=== PATIENT | male | born 1975 | race Hispanic/Latino ===

== ENCOUNTER 2016-05-20 23:45 | Emergency (ER) | payer SELFPAY ==
[2016-05-20 23:52] VITALS: BP 143/87; PULSE 89; RESP 18; TEMP 98.4; O2SAT 99
[2016-05-21] MEDS ORDERED: Polymyxin/Trimethoprim Ophth Soln OD STA (01:05)
[2016-05-21] MEDS ORDERED: Tobramycin/Dexamethasone OPHT OINT OD STA (01:12)
[2016-05-21] MEDS ORDERED: Dexamethasone/Tobramycin Ophth Susp OD STA (01:15)
== END 2016-05-21 01:23 | disposition home or self-care (01) ==
LOC: H.ER 23:45
DX: H57.8 Other specified disorders of eye and adnexa (principal)

== ENCOUNTER 2016-05-28 00:47 | Emergency (ER) | payer SELFPAY ==
[2016-05-28 01:19] VITALS: RESP 16; O2SAT 98
--- NOTE | 2016-05-28 03:42 | ED PDOC ---
Syncope/Near Syncope/Dizzyness Time Seen by Provider: 05/28/16 03:36 Chief Complaint (Nursing): Dizziness/Lightheaded Chief Complaint (Provider): Dizziness History Per: Patient History/Exam Limitations: no limitations Onset/Duration Of Symptoms: Hrs (5) Current Symptoms Are (Timing): Still Present Activity At Onset Of Symptoms: Sitting Additional Complaint(s): Delfino Saavedra is a 40 y/o male, with a past medical history of Diabetes Mellitus, presenting to the ER on 05/28/2016 with complaints od dizziness x5 hours. Patient reports dizziness began when sitting at his friends house. Dizziness was described as positional spinning of the room, and exacerbated when he tries to ambulate or rotate his head. Patient states associated symptoms including a headache but denies any vomiting, nausea, visual changes, lost of consciousness , chest pain, or shortness of breath. Patient took no medications prior to arrival for his dizziness. Past Medical History Reviewed: Historical Data, Nursing Documentation, Vital Signs Vital Signs: Last Vital Signs Temp 98.2 F 05/28/16 01:16 Pulse 81 05/28/16 01:16 Resp 16 05/28/16 01:16 BP 120/76 05/28/16 01:16 Pulse Ox 98 05/28/16 01:16 - Medical History PMH: Diabetes (type II) - Surgical History Surgical History: No Surg Hx - Family History Family History: States: Unknown Family Hx - Social History Current smoker - smoking cessation education provided: No Alcohol: Occasional Drugs: Denies - Immunization History Hx Tetanus Toxoid Vaccination: No Hx Influenza Vaccination: No Hx Pneumococcal Vaccination: No - Home Medications Home Medications: Ambulatory Orders Medication Instructions Recorded Moxifloxacin HCl [Vigamox 3 ml] 1 drop OD TID #1 jeny 05/19/16 Dexamethasone/Tobramycin [Tobradex 1 drop OP Q8 #1 bottle 05/21/16 0.1%-0.3% 2.5 Ml] Meclizine [Meclizine*] 25 mg PO TID PRN #15 tab 05/28/16 - Allergies Allergies/Adverse Reactions: Allergies Allergy/AdvReac Type Severity Reaction Status Date / Time No Known Allergies Allergy Verified 05/19/16 00:16 Review of Systems ROS Statement: Except As Marked, All Systems Reviewed And Found Negative Eyes: Negative for: Vision Change Cardiovascular: Negative for: Chest Pain, Light Headedness Respiratory: Negative for: Shortness of Breath Neurological: Positive for: Headache, Dizziness Physical Exam - Reviewed Nursing Documentation Reviewed: Yes Vital Signs Reviewed: Yes - Physical Exam Appears: Positive for: Non-toxic, No Acute Distress Head Exam: Positive for: ATRAUMATIC, NORMOCEPHALIC Skin: Positive for: Normal Color, Warm, Dry Eye Exam: Positive for: Normal appearance, EOMI, PERRL. Negative for: Nystagmus Neck: Positive for: Normal, Painless ROM, Supple Cardiovascular/Chest: Positive for: Regular Rate, Rhythm. Negative for: Murmur Respiratory: Positive for: Normal Breath Sounds. Negative for: Wheezing, Respiratory Distress Neurologic/Psych: Positive for: Alert, biomedical service engineer II-XII (intact ), Oriented, Gait ( steady ). Negative for: Motor/Sensory Deficits - Laboratory Results Result Diagrams: 05/28/16 04:00 05/28/16 04:00 - ECG ECG Rhythm: Positive for: Normal QRS, Sinus Rhythm. Negative for: ST/T Changes O2 Sat by Pulse Oximetry: 98 - Progress Re-evaluation Time: 05:40 Condition: Re-examined, Improved Medical Decision Making Medical Decision Makin:36 Initial Impression- Vertigo. Differential dx includes but not limited to central vertigo (less likely) vs. peripheral vertigo, benign paroxysmal positional vertigo, vestibular syndrome. Initial Plan- * CT Head w/o Contrast * EKG * BMP * Troponin * Antivert 25 mg PO 05:13 CT HEAD REPORT FINDINGS: Brain: No acute intracranial hemorrhage. No significant white matter disease. No edema. Ventricles: No significant ventriculomegaly. Bones: No acute displaced fracture. Sinuses: Unremarkable as visualized. No acute sinusitis. Mastoid air cells: Unremarkable as visualized. No mastoid effusion. IMPRESSION: No acute intracranial hemorrhage, or suspicious mass effect. Documented by Dwain Villalobos, acting as a scribe for Hong Wilkins MD. All medical record entries made by the Scribe were at my direction and personally dictated by me. I have reviewed the chart and agree that the record accurately reflects my personal performance of the history, physical exam, medical decision making, and the department course for this patient. I have also personally directed, reviewed, and agree with the discharge instructions and disposition. Disposition - Clinical Impression Clinical Impression: Dizziness - Patient ED Disposition Is Patient to be Admitted: No Doctor Will See Patient In The: Office Counseled Patient/Family Regarding: Studies Performed, Diagnosis, Need For Followup - Disposition Referrals: [facility] [Outside] Disposition: Routine/Home Disposition Time: 05:54 Condition: GOOD Additional Instructions: Follow up with your PCP in 2-3 days. Prescriptions: Meclizine [Meclizine*] 25 mg PO TID PRN #15 tab PRN Reason: Dizziness Instructions: Vertigo (ED)
[2016-05-28 04:17] LABS: BASO # 0.1 K/uL (0.0-0.2); BASO % 0.8 % (0.0-2.0); EOS # 0.1 K/uL (0.0-0.7); EOS % 1.8 % (0.0-4.0); HEMATOCRIT 42.5 % (35.0-51.0); LYMPH # 3.2 K/uL (1.0-4.3); LYMPH % 42.8 % (20.0-40.0); MEAN CELL VOLUME 95.6 fl (80.0-94.0); MEAN CORPUSCULAR HEMOGLOBIN 33.4 pg (27.0-31.0); MEAN CORPUSCULAR HGB CONC 34.9 g/dL (33.0-37.0); MEAN PLATELET VOLUME 7.7 fl (7.2-11.7); MONO # 0.7 K/uL (0.0-0.8); MONO % 9.4 % (0.0-10.0); NEUT # 3.4 K/uL (1.8-7.0); NEUT % 45.2 % (50.0-75.0); NRBC % 0.1 % (0.0-0.0); RED CELL DISTRIBUTION WIDTH 13.3 % (11.5-14.5); WHITE BLOOD COUNT 7.4 K/uL (4.8-10.8)
[2016-05-28 04:35] LABS: BLOOD UREA NITROGEN 7 mg/dl (9-20); CALCIUM 8.9 mg/dL (8.4-10.2); CARBON DIOXIDE 24 mmol/L (22-30); CHLORIDE 107 mmol/L (98-107); GFR AFRICAN-AMERICAN > 60; GLUCOSE,RANDOM 195 mg/dL (75-110); POTASSIUM 3.5 MMOL/L (3.6-5.0); SODIUM 144 mmol/l (132-148)
--- NOTE | 2016-05-28 05:13 | CT ---
EXAM: CT Head Without Intravenous Contrast CLINICAL HISTORY: 40 years old, male; Pain; Headache; Migraine; Aura effect not specified; Additional info: Headache dizziness TECHNIQUE: Axial computed tomography images of the head/brain without intravenous contrast. This CT exam was performed using one or more of the following dose reduction techniques: automated exposure control, adjustment of the mA and/or kV according to patient size, and/or use of iterative reconstruction technique. Coronal and sagittal reformatted images were created and reviewed. COMPARISON: No relevant prior studies available. FINDINGS: Brain: No acute intracranial hemorrhage. No significant white matter disease. No edema. Ventricles: No significant ventriculomegaly. Bones: No acute displaced fracture. Sinuses: Unremarkable as visualized. No acute sinusitis. Mastoid air cells: Unremarkable as visualized. No mastoid effusion. IMPRESSION: No acute intracranial hemorrhage, or suspicious mass effect.
[2016-05-28 06:12] VITALS: BP 116/78; PULSE 72; TEMP 97.4
--- NOTE | 2016-05-29 11:44 | CARD ---
APPROVED REPORT EKG Measurement Heart [id number] <Conclusion> Normal sinus rhythm Possible Septal infarct, age undetermined Abnormal ECG
== END 2016-05-28 06:11 | disposition home or self-care (01) ==
LOC: H.ER 00:47
DX: R42 Dizziness and giddiness (principal); R51 Headache; E11.9 Type 2 diabetes mellitus without complications

== ENCOUNTER 2016-07-20 23:32 | Inpatient (IN) | payer MEDICAID ==
[2016-07-20 23:32] VITALS: BMI 33.5
[2016-07-21] MEDS ORDERED: Magnesium Sulfate 2 gm/50 ml 2 GM/50 ML BAG IV STA (00:24)
[2016-07-21] MEDS ORDERED: Albuterol-Ipratrop 3 mg / 0.5 (3 ml) UD INH STA ×3 (00:25→00:26)
[2016-07-21] MEDS ORDERED: Albuterol-Ipratrop 3 mg / 0.5 (3 ml) UD ONE (00:26)
[2016-07-21] MEDS ORDERED: Magnesium Sulfate 2 gm/50 ml 2 GM/50 ML BAG ONE (00:26)
--- NOTE | 2016-07-21 00:32 | ED PDOC ---
HPI: SOB/CHF/COPD Time Seen by Provider: 07/20/16 23:56 Chief Complaint (Nursing): Shortness Of Breath Chief Complaint (Provider): dyspnea x 2 weeks History Per: Patient History/Exam Limitations: no limitations Onset/Duration Of Symptoms: Days Current Symptoms Are (Timing): Still Present Quality: Tightness Exacerbating Factor(s): Exertion, Laying Flat Current Respiratory Medications: See Home Med List, Albuterol Severity: Moderate Additional History Per: Patient, Family (significant other) Additional Complaint(s): Patient is a 41 yo male with PMHx recently dxd COPD and DM. He was recently admitted at [facility] asthma COPD exacernbation. He reports that jhe has since developed severe chest tightness and SOB with wheezing. He reports no relief with MDI. He denies active smoking but sis have an occasional cigarette and is exposed to second hand smoke. Past Medical History Reviewed: Historical Data, Nursing Documentation, Vital Signs Vital Signs: Last Vital Signs Temp 98.1 F 07/20/16 23:51 Pulse 102 H 07/21/16 02:05 Resp 19 07/21/16 02:05 BP 125/81 07/20/16 23:51 Pulse Ox 97 07/21/16 01:46 - Medical History PMH: Asthma, Diabetes (type II) Denies: Chronic Kidney Disease - Family History Family History: States: Unknown Family Hx - Immunization History Hx Tetanus Toxoid Vaccination: No Hx Influenza Vaccination: No Hx Pneumococcal Vaccination: No - Home Medications Home Medications: Ambulatory Orders Medication Instructions Recorded Acetaminophen/Butalbital/Caf 1 tab PO DAILY 07/21/16 [Fioricet] Budesonide/Formoterol Fumarate 2 puff INH PRN PRN 07/21/16 [Symbicort 160-4.5 Mcg Inhaler] Sumatriptan Succinate [Imitrex] 100 mg PO DAILY 07/21/16 - Allergies Allergies/Adverse Reactions: Allergies Allergy/AdvReac Type Severity Reaction Status Date / Time No Known Allergies Allergy Verified 07/21/16 00:50 Review of Systems ROS Statement: Except As Marked, All Systems Reviewed And Found Negative Respiratory: Positive for: Cough, Shortness of Breath, Wheezing Physical Exam - Reviewed Nursing Documentation Reviewed: Yes Vital Signs Reviewed: Yes - Physical Exam Appears: Positive for: Uncomfortable Head Exam: Positive for: ATRAUMATIC, NORMOCEPHALIC Skin: Positive for: Normal Color, Warm, Dry Eye Exam: Positive for: Normal appearance, EOMI, PERRL ENT: Positive for: Normal ENT Inspection Neck: Positive for: Normal, Painless ROM, Supple Cardiovascular/Chest: Positive for: Regular Rate, Rhythm Respiratory: Positive for: Accessory Muscle Use, Wheezing. Negative for: Normal Breath Sounds, Rales Gastrointestinal/Abdominal: Positive for: Normal Exam, Bowel Sounds, Soft. Negative for: Tenderness Extremity: Positive for: Normal ROM. Negative for: Tenderness, Pedal Edema Neurologic/Psych: Positive for: Alert, Oriented. Negative for: Motor/Sensory Deficits - Laboratory Results Result Diagrams: 07/21/16 00:30 07/21/16 00:30 - ECG O2 Sat by Pulse Oximetry: 99 - Critical Care Total Time (In Min): 30 Medical Decision Making Medical Decision Makin yo male with resp distress in setting of asthma exacerbation Labs, EKG, SL, Trila of Nebs/Mag sulfate and Duonebs ordered Patient will be placed on Obs status due to severity of symptoms and poor response to home meds. Case referred to Dr Waqas Griffin Asthma exacerbation, Resp Distress Disposition - Clinical Impression Clinical Impression: Asthma exacerbation - Disposition Disposition Time: 00:36 Condition: FAIR
[2016-07-21 00:59] LABS: BASO # 0.1 K/uL (0.0-0.2); BASO % 0.5 % (0.0-2.0); EOS % 0.5 % (0.0-4.0); HEMATOCRIT 49.6 % (35.0-51.0); LYMPH # 2.7 K/uL (1.0-4.3); LYMPH % 28.8 % (20.0-40.0); MEAN CELL VOLUME 96.7 fl (80.0-94.0); MEAN CORPUSCULAR HEMOGLOBIN 32.5 pg (27.0-31.0); MEAN CORPUSCULAR HGB CONC 33.6 g/dL (33.0-37.0); MEAN PLATELET VOLUME 7.7 fl (7.2-11.7); MONO # 0.9 K/uL (0.0-0.8); MONO % 9.4 % (0.0-10.0); NEUT # 5.7 K/uL (1.8-7.0); NEUT % 60.8 % (50.0-75.0); NRBC % 0.1 % (0.0-0.0); RED CELL DISTRIBUTION WIDTH 12.6 % (11.5-14.5); WHITE BLOOD COUNT 9.5 K/uL (4.8-10.8)
--- NOTE | 2016-07-21 01:16 | CP.PCM.HP ---
History of Present Illness - History of Present Illness History of Present Illness: CC: SOB, Wheezing HPI: 41 y/o male with asthma who presents with severe SOB which has gotten especially worse over past 3-4 days. States the episode started after a visit to [facility] [place] Denies any new exposures there-- has been there mulltiple times without asthma in the past. Denies any other exposures, denies new foods, pets, activities, or objects in the house. Denies f/c, denies productive cough. Never had asthma symptoms before. Patient states he was smoking regularly prior to this 3 week long episode. ROS: 14 systems reviewed, negative other than HPI MHx: Asthma, ?DM2 SHx: None Allergies: NKDA Medications: Per med list Medical Hx: None, reviewed Social Hx: Live with family, no heavy EtOH, smoking < 1ppd until 3 weeks ago Present on Admission - Present on Admission Any Indicators Present on Admission: No Past Patient History - Infectious Disease Hx of Infectious Diseases: None - Past Medical History & Family History Past Medical History?: Yes - Past Social History Smoking Status: Heavy Smoker > 10 Cigarettes Daily - PULMONARY Hx Asthma: Yes - NEUROLOGICAL Hx Vertigo: Yes (takes antivert but med ran out) - HEENT Hx HEENT Problems: No - RENAL Hx Chronic Kidney Disease: No - ENDOCRINE/METABOLIC Hx Endocrine Disorders: Yes Hx Diabetes Mellitus Type 2: Yes - HEMATOLOGICAL/ONCOLOGICAL Hx Blood Disorders: No Hx Blood Transfusions: No - MUSCULOSKELETAL/RHEUMATOLOGICAL Hx Falls: No - GASTROINTESTINAL Hx Gastrointestinal Disorders: No - GENITOURINARY/GYNECOLOGICAL Hx Genitourinary Disorders: No - PSYCHIATRIC Hx Substance Use: Yes (marijuana use, last use 05/27/2016) - SURGICAL HISTORY Hx Surgeries: No - ANESTHESIA Hx Anesthesia: No Hx Anesthesia Reactions: No Meds Allergies/Adverse Reactions: Allergies Allergy/AdvReac Type Severity Reaction Status Date / Time No Known Allergies Allergy Verified 07/21/16 00:50 Physical Exam - Constitutional Appears: No Acute Distress - Head Exam Head Exam: ATRAUMATIC, NORMOCEPHALIC - Eye Exam Eye Exam: EOMI - ENT Exam ENT Exam: Mucous Membranes Moist - Neck Exam Neck exam: Positive for: Full Rom - Respiratory Exam Respiratory Exam: Rales, Rhonchi, Wheezes - Cardiovascular Exam Cardiovascular Exam: REGULAR RHYTHM, +S1, +S2 - GI/Abdominal Exam GI & Abdominal Exam: Hyperactive Bowel Sounds, Soft - Extremities Exam Extremities exam: Positive for: full ROM, normal capillary refill, normal inspection - Back Exam Back exam: NORMAL INSPECTION - Neurological Exam Neurological exam: Alert, CN II-XII Intact, Oriented x3 - Psychiatric Exam Psychiatric exam: Depressed, Normal Affect, Normal Mood - Skin Skin Exam: Dry, Rash, Warm Results - Vital Signs Recent Vital Signs: Last Vital Signs Temp 98.1 F 07/20/16 23:51 Pulse 127 H 07/20/16 23:51 Resp 22 07/20/16 23:51 BP 125/81 07/20/16 23:51 Pulse Ox 99 07/21/16 00:39 - Labs Result Diagrams: 07/21/16 00:30 Labs: Laboratory Results - last 24 hr 07/21/16 00:30 WBC 9.5 RBC 5.13 Hgb 16.7 Hct 49.6 MCV 96.7 H MCH 32.5 H MCHC 33.6 RDW 12.6 Plt Count 193 MPV 7.7 Neut % (Auto) 60.8 Lymph % (Auto) 28.8 Vermilion % (Auto) 9.4 Eos % (Auto) 0.5 Baso % (Auto) 0.5 Neut # 5.7 Lymph # 2.7 Vermilion # 0.9 H Eos # 0.0 Baso # 0.1 Assessment & Plan (1) Asthma exacerbation Assessment and Plan: 41 y/o male patient presenting with asthma exacerbation that is not resolving. 1) Asthma exac -- no underlying PNA or other infection it appears -Cont duonebs -Cont IV steroids -Cont PPI for GI PPx in this case -admit for overnight obs -imaging if patient not impriving -Abx if any sign of infection (currently none) 2) DM2 -- patient reports DM2 hx, but states not on medications -Accuchecks, SSI 3) DVT PPx -- SCDs, ambulation Status: Acute (2) DM2 (diabetes mellitus, type 2) Status: Acute (3) DVT prophylaxis Status: Acute
[2016-07-21 01:18] LABS: ALB/GLOB RATIO 1.5 (1.0-2.1); ALKALINE PHOSPHATASE 85 U/L (38-126); ALT/SGPT 42 U/L (21-72); AST/SGOT 28 U/L (17-59); BILIRUBIN,TOTAL 0.4 mg/dl (0.2-1.3); BLOOD UREA NITROGEN 26 mg/dl (9-20); CALCIUM 9.3 mg/dL (8.4-10.2); CARBON DIOXIDE 30 mmol/L (22-30); CHLORIDE 98 mmol/L (98-107); GFR AFRICAN-AMERICAN > 60; GLUCOSE,RANDOM 223 mg/dL (75-110); POTASSIUM 4.6 MMOL/L (3.6-5.0); SODIUM 140 mmol/l (132-148); TOTAL PROTEIN 7.1 G/DL (6.3-8.2)
[2016-07-21] MEDS: methylPREDNISolone 60 MG in Sodium Chloride 0.9% 50 ML IV SCH ×3 (01:41→16:34)
[2016-07-21] MEDS: Apap-Butalbital-Caffeine 325-50-40mg Tab PO PRN ×3 (02:22→23:56)
[2016-07-21] MEDS: Albuterol-Ipratrop 3 mg / 0.5 (3 ml) UD INH SCH ×4 (07:22→20:29)
[2016-07-21] MEDS: Pantoprazole 40 mg EC Tab PO SCH (08:40)
[2016-07-21] MEDS: Insulin Lispro (humaLOG) 100 Units/ml Inj SC SCH ×4 (08:40→21:24)
--- NOTE | 2016-07-21 11:19 | RAD ---
HISTORY: asthma COMPARISON: No prior. TECHNIQUE: Chest PA and lateral FINDINGS: LUNGS: No active pulmonary disease. PLEURA: No significant pleural effusion identified. No pneumothorax apparent. CARDIOVASCULAR: Normal. OSSEOUS STRUCTURES: No significant abnormalities. VISUALIZED UPPER ABDOMEN: Normal. OTHER FINDINGS: None. IMPRESSION: No active disease.
--- NOTE | 2016-07-21 14:52 | CARD ---
APPROVED REPORT EKG Measurement Heart [id number] <Conclusion> Sinus tachycardia Anterior infarct, age undetermined Abnormal ECG
[2016-07-22] MEDS: methylPREDNISolone 60 MG in Sodium Chloride 0.9% 50 ML IV SCH ×3 (00:29→16:28)
[2016-07-22] MEDS: Albuterol-Ipratrop 3 mg / 0.5 (3 ml) UD INH SCH ×3 (08:06→19:23)
[2016-07-22] MEDS: Enoxaparin 40 mg Syringe SC SCH (08:39)
[2016-07-22] MEDS: Insulin Lispro (humaLOG) 100 Units/ml Inj SC SCH ×4 (08:39→22:40)
[2016-07-22] MEDS: Pantoprazole 40 mg EC Tab PO SCH (08:40)
[2016-07-22] MEDS: Apap-Butalbital-Caffeine 325-50-40mg Tab PO PRN ×2 (08:46→16:38)
--- NOTE | 2016-07-22 11:49 | CP.PCM.PN ---
Subjective - Date & Time of Evaluation Date of Evaluation: 07/22/16 Time of Evaluation: 11:47 - Subjective Subjective: patient states feels mildly improved continues to wheeze azithromycin startedy vitals stable no acute distress no respiratory distress Objective - Vital Signs/Intake and Output Vital Signs (last 24 hours): Temp Pulse Resp BP Pulse Ox 98.0 F 77 20 127/80 99 07/22/16 07:29 07/22/16 07:29 07/22/16 07:29 07/22/16 07:29 07/22/16 07:29 - Medications Medications: Current Medications Acetaminophen/Butalbital/Caffeine (Fioricet) 1 tab PO Q4 PRN PRN Reason: Headache Last Admin: 07/22/16 08:46 Dose: 1 tab Albuterol/Ipratropium (Duoneb 3 Mg/0.5 Mg (3 Ml) Ud) 3 ml INH RQID [facility] Last Admin: 07/22/16 08:06 Dose: 3 ml Albuterol/Ipratropium (Duoneb 3 Mg/0.5 Mg (3 Ml) Ud) 3 ml INH RQ6 PRN PRN Reason: Shortness of Breath Azithromycin (Zithromax) 500 mg PO DAILY [facility] Last Admin: 07/22/16 10:37 Dose: 500 mg Enoxaparin Sodium (Lovenox) 40 mg SC DAILY [facility] PRN Reason: Protocol Last Admin: 07/22/16 08:39 Dose: 40 mg Methylprednisolone 60 mg/ (Sodium Chloride) 50 mls @ 100 mls/hr IV Q8H [facility] Last Admin: 07/22/16 08:39 Dose: 100 mls/hr Insulin Human Lispro (Humalog) 0 units SC ACHS [facility] PRN Reason: Protocol Last Admin: 07/22/16 11:07 Dose: 10 units Metformin HCl (Glucophage) 500 mg PO BIDWM [facility] Last Admin: 07/22/16 08:39 Dose: 500 mg Montelukast Sodium (Singulair) 10 mg PO HS [facility] Last Admin: 07/21/16 21:24 Dose: 10 mg Nicotine (Nicoderm Cq) 1 patch TD DAILY [facility] Last Admin: 07/22/16 08:39 Dose: 1 patch Pantoprazole Sodium (Protonix Ec Tab) 40 mg PO DAILY [facility] Last Admin: 07/22/16 08:40 Dose: 40 mg - Labs Labs: 07/21/16 00:30 07/21/16 00:30 - Constitutional Appears: Non-toxic, No Acute Distress - Head Exam Head Exam: ATRAUMATIC, NORMOCEPHALIC - Eye Exam Eye Exam: EOMI, Normal appearance, PERRL Pupil Exam: NORMAL ACCOMODATION - ENT Exam ENT Exam: Mucous Membranes Moist, Normal Oropharynx - Respiratory Exam Respiratory Exam: Wheezes (all lung enriquez), NORMAL BREATHING PATTERN - Cardiovascular Exam Cardiovascular Exam: RRR, +S1, +S2 - GI/Abdominal Exam GI & Abdominal Exam: Soft, Normal Bowel Sounds. absent: Tenderness - Extremities Exam Extremities Exam: Normal Capillary Refill. absent: Tenderness - Back Exam Back Exam: absent: CVA tenderness (L), CVA tenderness (R) - Neurological Exam Neurological Exam: Alert, Awake, Oriented x3 - Psychiatric Exam Psychiatric exam: Normal Affect, Normal Mood - Skin Skin Exam: Dry, Normal Color, Warm Assessment and Plan - Assessment and Plan (Free Text) Plan: 41 y/o male with asthma who presents with severe SOB which has gotten especially worse over past 3-4 days. States the episode started after a visit to [facility] to a friends house in the [facility]. Denies any new exposures there-- has been there mulltiple times without asthma in the past. Denies any other exposures, denies new foods, pets, activities, or objects in the house. Denies f/c, denies productive cough. Never had asthma symptoms before. Patient states he was smoking regularly prior to this 3 week long episode. (1) Asthma exacerbation Assessment and Plan: 41 y/o male patient presenting with asthma exacerbation that is not resolving. 1) Asthma exac/COPD - patient smokes heavily - Azithromycin started yesterday - only mild improvement, continues to wheeze all lung enriquez -Cont duonebs -Cont IV steroids -Cont PPI for GI PPx in this case -flip to impatient -cxr NEG 2) DM2 -- patient reports DM2 hx, but states not on medications -Accuchecks, SSI 3) DVT PPx -- SCDs, ambulation Status: Acute (2) DM2 (diabetes mellitus, type 2) Status: Acute (3) DVT prophylaxis Status: Acute
[2016-07-22] MEDS: Albuterol-Ipratrop 3 mg / 0.5 (3 ml) UD INH PRN ×2 (12:13→16:45)
[2016-07-23] MEDS: methylPREDNISolone 60 MG in Sodium Chloride 0.9% 50 ML IV SCH ×2 (01:02→09:14)
[2016-07-23] MEDS: Apap-Butalbital-Caffeine 325-50-40mg Tab PO PRN ×2 (01:08→09:58)
[2016-07-23] MEDS: Albuterol-Ipratrop 3 mg / 0.5 (3 ml) UD INH SCH ×3 (07:33→19:55)
[2016-07-23] MEDS: Insulin Lispro (humaLOG) 100 Units/ml Inj SC SCH ×4 (07:49→22:11)
[2016-07-23] MEDS: Enoxaparin 40 mg Syringe SC SCH (09:13)
[2016-07-23] MEDS: Pantoprazole 40 mg EC Tab PO SCH (09:13)
--- NOTE | 2016-07-23 10:37 | CP.PCM.PN ---
Subjective - Date & Time of Evaluation Date of Evaluation: 07/23/16 Time of Evaluation: 10:33 - Subjective Subjective: patient seen examined bedside continues to improve, however, continues to have wheezing with chest tightness. likely discharge tomorrow once work of breathing improves further HD stable NAD Objective - Vital Signs/Intake and Output Vital Signs (last 24 hours): Temp Pulse Resp BP Pulse Ox 97.4 F L 79 20 128/87 100 07/23/16 08:23 07/23/16 08:23 07/23/16 08:23 07/23/16 08:23 07/23/16 08:23 - Medications Medications: Current Medications Acetaminophen/Butalbital/Caffeine (Fioricet) 1 tab PO Q4 PRN PRN Reason: Headache Last Admin: 07/23/16 09:58 Dose: 1 tab Albuterol/Ipratropium (Duoneb 3 Mg/0.5 Mg (3 Ml) Ud) 3 ml INH RQ6 PRN PRN Reason: Shortness of Breath Last Admin: 07/22/16 16:45 Dose: 3 ml Albuterol/Ipratropium (Duoneb 3 Mg/0.5 Mg (3 Ml) Ud) 3 ml INH RTID [facility] Last Admin: 07/23/16 07:33 Dose: 3 ml Azithromycin (Zithromax) 500 mg PO DAILY [facility] Last Admin: 07/23/16 09:14 Dose: 500 mg Enoxaparin Sodium (Lovenox) 40 mg SC DAILY [facility] PRN Reason: Protocol Last Admin: 07/23/16 09:13 Dose: 40 mg Methylprednisolone 60 mg/ (Sodium Chloride) 50 mls @ 100 mls/hr IV Q8H [facility] Last Admin: 07/23/16 09:14 Dose: 100 mls/hr Insulin Human Lispro (Humalog) 0 units SC ACHS [facility] PRN Reason: Protocol Last Admin: 07/23/16 07:49 Dose: 10 units Metformin HCl (Glucophage) 500 mg PO BIDWM [facility] Last Admin: 07/23/16 09:13 Dose: 500 mg Montelukast Sodium (Singulair) 10 mg PO HS [facility] Last Admin: 07/22/16 22:41 Dose: 10 mg Nicotine (Nicoderm Cq) 1 patch TD DAILY [facility] Last Admin: 07/23/16 09:13 Dose: 1 patch Pantoprazole Sodium (Protonix Ec Tab) 40 mg PO DAILY [facility] Last Admin: 07/23/16 09:13 Dose: 40 mg - Constitutional Appears: Non-toxic, No Acute Distress - Head Exam Head Exam: ATRAUMATIC, NORMOCEPHALIC - Eye Exam Eye Exam: EOMI, Normal appearance, PERRL Pupil Exam: NORMAL ACCOMODATION - ENT Exam ENT Exam: Mucous Membranes Moist, Normal Oropharynx - Neck Exam Neck Exam: Full ROM, Normal Inspection - Respiratory Exam Respiratory Exam: Wheezes Additional comments: with mildly increased work of breathing - Cardiovascular Exam Cardiovascular Exam: RRR, +S1, +S2. absent: Gallop, Rubs - GI/Abdominal Exam GI & Abdominal Exam: Soft, Normal Bowel Sounds. absent: Tenderness, Mass, Organomegaly - Extremities Exam Extremities Exam: Normal Capillary Refill. absent: Calf Tenderness - Back Exam Back Exam: absent: CVA tenderness (L), CVA tenderness (R) - Neurological Exam Neurological Exam: Alert, Awake, Oriented x3 - Psychiatric Exam Psychiatric exam: Normal Affect, Normal Mood - Skin Skin Exam: Dry, Warm Assessment and Plan - Assessment and Plan (Free Text) Plan: 41 y/o male with asthma who presents with severe SOB which has gotten especially worse over past 3-4 days. States the episode started after a visit to [facility] to a friends house in the [facility]. Denies any new exposures there-- has been there mulltiple times without asthma in the past. Denies any other exposures, denies new foods, pets, activities, or objects in the house. Denies f/c, denies productive cough. Never had asthma symptoms before. Patient states he was smoking regularly prior to this 3 week long episode. (1) Asthma exacerbation Assessment and Plan: 41 y/o male patient presenting with asthma exacerbation that is not resolving. 1) Asthma exac/COPD - continues to improve, however has mildly increased work of breathing. Can likely discharge tomorrow once improves further - patient smokes heavily - Azithromycin started 2 days ago -Cont duonebs -Cont IV steroids -Cont PPI for GI PPx in this case -cxr NEG 2) DM2 -- patient reports DM2 hx, but states not on medications -Accuchecks, SSI 3) DVT PPx -- SCDs, ambulation Status: Acute (2) DM2 (diabetes mellitus, type 2) Status: Acute (3) DVT prophylaxis Status: Acute
--- NOTE | 2016-07-23 16:27 | US ---
PROCEDURE: Bilateral lower extremity venous duplex Doppler. HISTORY: DVT? COMPARISON: None available. TECHNIQUE: Bilateral common femoral, superficial femoral, popliteal and posterior tibial veins were evaluated. Flow was assessed with color Doppler, compressibility, assessment of phasic flow and augmentation response. FINDINGS: COMMON FEMORAL VEIN: Right CFV: Unremarkable. Left CFV: Unremarkable. SUPERFICIAL FEMORAL VEIN: Right SFV: Unremarkable. Left SFV: Unremarkable. POPLITEAL VEIN: Right Popliteal: Unremarkable. Left Popliteal: Unremarkable. POSTERIOR TIBIAL VEIN: Right PTV: Unremarkable. Left PTV: Unremarkable. OTHER FINDINGS: None. IMPRESSION: No evidence of deep venous thrombosis.
[2016-07-24] MEDS: methylPREDNISolone 40 MG in Sodium Chloride 0.9% 50 ML IVPB SCH ×2 (01:01→08:22)
[2016-07-24] MEDS: Apap-Butalbital-Caffeine 325-50-40mg Tab PO PRN (01:05)
[2016-07-24] MEDS: Insulin Lispro (humaLOG) 100 Units/ml Inj SC SCH ×4 (08:02→21:58)
[2016-07-24] MEDS: Enoxaparin 40 mg Syringe SC SCH (08:05)
[2016-07-24] MEDS: Pantoprazole 40 mg EC Tab PO SCH (08:06)
[2016-07-24] MEDS: Albuterol-Ipratrop 3 mg / 0.5 (3 ml) UD INH SCH ×3 (08:12→19:40)
[2016-07-24] MEDS: Sodium Chloride 0.9% 1,000 ML IV SCH ×2 (08:22→16:54)
[2016-07-24 09:13] LABS: BLOOD UREA NITROGEN 25 mg/dl (9-20); CALCIUM 9.4 mg/dL (8.4-10.2); CARBON DIOXIDE 26 mmol/L (22-30); CHLORIDE 95 mmol/L (98-107); GFR AFRICAN-AMERICAN > 60; POTASSIUM 4.8 MMOL/L (3.6-5.0); SODIUM 134 mmol/l (132-148)
[2016-07-24 09:17] LABS: GLUCOSE,RANDOM 445 mg/dL (75-110)
[2016-07-24] MEDS ORDERED: Insulin Lispro (humaLOG) 100 Units/ml Inj SC SCH (11:30)
[2016-07-24] MEDS: Fluticasone-Salmeterol 250-50mcg Diskus IH SCH ×2 (13:23→21:00)
[2016-07-24] MEDS ORDERED: Insulin Regular 100 units/ml SC STA (14:17)
--- NOTE | 2016-07-24 14:46 | CP.PCM.PN ---
Subjective - Date & Time of Evaluation Date of Evaluation: 07/24/16 Time of Evaluation: 14:00 - Subjective Subjective: Pt seen and examined. Feeling frustrated that although he was feeling much better with regards to his respiration, his blood sugar was out of control and felt tingling sensation on his fingertips. Objective - Vital Signs/Intake and Output Vital Signs (last 24 hours): Temp Pulse Resp BP Pulse Ox 97.3 F L 71 20 120/75 98 07/24/16 09:00 07/24/16 09:00 07/24/16 09:00 07/24/16 09:00 07/24/16 09:00 - Medications Medications: Current Medications Acetaminophen/Butalbital/Caffeine (Fioricet) 1 tab PO Q4 PRN PRN Reason: Headache Last Admin: 07/24/16 01:05 Dose: 1 tab Albuterol/Ipratropium (Duoneb 3 Mg/0.5 Mg (3 Ml) Ud) 3 ml INH RQ6 PRN PRN Reason: Shortness of Breath Last Admin: 07/22/16 16:45 Dose: 3 ml Albuterol/Ipratropium (Duoneb 3 Mg/0.5 Mg (3 Ml) Ud) 3 ml INH RTID [facility] Last Admin: 07/24/16 13:48 Dose: 3 ml Azithromycin (Zithromax) 500 mg PO DAILY [facility] Last Admin: 07/24/16 08:05 Dose: 500 mg Enoxaparin Sodium (Lovenox) 40 mg SC DAILY [facility] PRN Reason: Protocol Last Admin: 07/24/16 08:05 Dose: 40 mg Glipizide (Glucotrol) 10 mg PO BIDAC [facility] Last Admin: 07/24/16 08:02 Dose: 10 mg Sodium Chloride (Sodium Chloride 0.9%) 1,000 mls @ 150 mls/hr IV .Q6H40M [facility] Stop: 07/25/16 07:56 Last Admin: 07/24/16 08:22 Dose: 150 mls/hr Ibuprofen (Motrin Tab) 600 mg PO Q6 PRN PRN Reason: Pain, severe (8-10) Last Admin: 07/24/16 12:09 Dose: 600 mg Insulin Human Lispro (Humalog) 0 units SC ACHS [facility] PRN Reason: Protocol Last Admin: 07/24/16 12:08 Dose: 6 units Insulin Human NPH (Humulin N) 30 units SC HS [facility] Metformin HCl (Glucophage) 1,000 mg PO BIDWM [facility] Montelukast Sodium (Singulair) 10 mg PO HS [facility] Last Admin: 07/23/16 22:10 Dose: 10 mg Nicotine (Nicoderm Cq) 1 patch TD DAILY [facility] Last Admin: 07/24/16 08:05 Dose: 1 patch Pantoprazole Sodium (Protonix Ec Tab) 40 mg PO DAILY [facility] Last Admin: 07/24/16 08:06 Dose: 40 mg Prednisone (Prednisone Tab) 40 mg PO DAILY [facility] Fluticasone/Salmeterol (Advair Diskus 250/50) 1 puff IH Q12 [facility] Last Admin: 07/24/16 13:23 Dose: 1 puff - Labs Labs: 07/24/16 08:46 - Constitutional Appears: No Acute Distress - Head Exam Head Exam: ATRAUMATIC - Eye Exam Eye Exam: absent: Scleral icterus - ENT Exam ENT Exam: Mucous Membranes Moist - Neck Exam Neck Exam: absent: Meningismus - Respiratory Exam Respiratory Exam: absent: Rhonchi, Wheezes, Respiratory Distress - Cardiovascular Exam Cardiovascular Exam: REGULAR RHYTHM, +S1, +S2 - GI/Abdominal Exam GI & Abdominal Exam: Soft. absent: Tenderness - Rectal Exam Rectal Exam: Deferred - Extremities Exam Extremities Exam: absent: Pedal Edema - Back Exam Back Exam: absent: tenderness - Neurological Exam Neurological Exam: Alert, Oriented x3 - Psychiatric Exam Psychiatric exam: Normal Affect - Skin Skin Exam: Dry, Intact Assessment and Plan (1) Exacerbation of asthma Status: Acute (2) DM2 (diabetes mellitus, type 2) Status: Chronic (3) DVT prophylaxis Status: Acute - Assessment and Plan (Free Text) Assessment: 41 yo male with history of asthma and DM2 came in with SOB and wheezing. He was managed with inhaled bronchodilators and steroid plus antibiotics and did well however his blood sugar became uncontrolled going over 400mg%. (1) Asthma exacerbation denied SOB or wheezing continue Duonebs, Montelukast and Zithromax DC SoluMedrol started on tapering dose of Prednisone and Advair continue Protonix 40mg PO OD (2) DM2 (diabetes mellitus, type 2) BS uncontrolled probably secondary to steroid patient not on home medication for diabetes because of financial reason Glucotrol 10mg PO BID Metformin 1000mg PO BID accuchek ACHS with low dose Lispro for coverage endocrinology consult with Dr Castillo (3) DVT prophylaxis Lovenox 40mg SC daily
--- NOTE | 2016-07-24 18:48 | CON ---
DATE: 07/24/2016 ROOM: 668. HISTORY OF PRESENT ILLNESS: This is a 41-year-old male with history of chronic bronchial asthma pres enting here with marked shortness of breath and evaluated to have acute exacerbation of the same and started on steroid therapy with supervening hyperglycemic accelerations as noted thereof. PAST MEDICAL HISTORY: As mentioned above, history of type 2 diabetes, currently on oral hypoglycemic therapy, taking glipizide given as 10 mg b.i.d. and metformin at 1000 mg b.i.d., history of hyperten sive cardiovascular disease and dyslipidemia, history of chronic asthmatic bronchitis with previous a dmissions for exacerbations of the same. FAMILY HISTORY: Positive for hypertension and diabetes. SOCIAL HISTORY: The patient admits to nicotine dependence with no other illicit drug use. Has a sup portive family otherwise. PHYSICAL EXAMINATION: GENERAL: This is an average built male in no apparent distress. VITAL SIGNS: Blood pressure of 140/70, pulse of 80 beats per minute, regular, temperature 98, respir ations 20. Height is 5 feet 10, weight is 210 pounds. HEENT: Head normocephalic. Eyes anicteric with pink conjunctivae. Fundoscopy not possible at this time. Ears, nose and throat otherwise normal. NECK: Supple. Thyroid gland is normal size. No carotid bruits. No cervical adenopathy. CARDIOPULMONARY: Some adynamic precordium. S1, S2 is rapid and regular. LUNGS: Show scattered rhonchi. ABDOMEN: Flat, soft with positive bowel sounds. EXTREMITIES: No peripheral edema. Pulses are +2 bilaterally. LABORATORY DATA: His chemistries showed a BUN of 25, sodium 134, potassium 4.8, chloride 95, CO2 26, glucose 445, creatinine 0.6. His glucose levels have ranged from 432 to over 500 mg/dL. ASSESSMENT: This is a 41-year-old male with uncontrolled and decompensated type 2 insulin-requiring diabetes, presenting here with marked hyperglycemic accelerations following the initiation of insulin therapy as given and noted. With the steroid therapy, would expect increased insulin resistance and further impaired glucose tolerance on a temporary basis and should improve accordingly as his steroi ds are tapered down. PLAN OF MANAGEMENT: As discussed with the patient and staff, will continue the same basal and bolus insulin regimen as ordered at the higher dose of Humulin NPH given as 20 units subQ at bedtime daily to start tonight. We will titrate incrementally as indicated to optimize metabolic control. We will also add Humalog given as 10 units subQ t.i.d. before meals and we will titrate incrementally as ind icated to optimize metabolic control. As the steroids are tapered down, should expect improvement of his glycemic fluctuations thereof. We will continue the dual oral hypoglycemic drug therapy as orde red. We will follow. Janette Castillo MD cc: [id number] TT: 07/24/2016 18:47:49 Confirmation # [id number] Dictation # [id number] dio
[2016-07-24] MEDS ORDERED: Insulin NPH Human 100 Units/ml Inj SC SCH (22:00)
[2016-07-25] MEDS: Sodium Chloride 0.9% 1,000 ML IV SCH (00:05)
[2016-07-25] MEDS: Apap-Butalbital-Caffeine 325-50-40mg Tab PO PRN (00:08)
[2016-07-25 07:04] LABS: BLOOD UREA NITROGEN 23 mg/dl (9-20); CALCIUM 8.5 mg/dL (8.4-10.2); CARBON DIOXIDE 29 mmol/L (22-30); CHLORIDE 100 mmol/L (98-107); GFR AFRICAN-AMERICAN > 60; GLUCOSE,RANDOM 268 mg/dL (75-110); POTASSIUM 4.1 MMOL/L (3.6-5.0); SODIUM 136 mmol/l (132-148)
[2016-07-25] MEDS: Fluticasone-Salmeterol 250-50mcg Diskus IH SCH ×2 (08:04→21:44)
[2016-07-25] MEDS: Pantoprazole 40 mg EC Tab PO SCH (08:05)
[2016-07-25] MEDS: Insulin Lispro (humaLOG) 100 Units/ml Inj SC SCH ×7 (08:06→21:52)
[2016-07-25] MEDS: Albuterol-Ipratrop 3 mg / 0.5 (3 ml) UD INH SCH ×3 (08:27→20:00)
[2016-07-25] MEDS: Enoxaparin 40 mg Syringe SC SCH (09:44)
--- NOTE | 2016-07-25 14:02 | PN ---
DATE: 07/25/2016 ROOM: 665 SUBJECTIVE: This is a 41-year-old male with recent uncontrolled type 2 insulin-requiring diabetes, p resenting here with marked hyperglycemic accelerations and concomitantly also on steroid therapy, whi ch would contribute to the increased insulin resistance thereof. He is being followed closely now fo r metabolic management as noted. His latest glucose values are still fluctuating and markedly elevat ed, ranging from 285 - 496 mg/dL. His latest chemistry showed a BUN of 23, sodium 136, potassium 4.1 , chloride 100, CO2 29, glucose 268 and creatinine 0.6. So, at this time, we will modify once again his basal and bolus insulin regimen and increase the Humalog to 20 units subQ t.i.d. before meals to start today as ordered. We will also increase the NPH to 40 units subQ at bedtime daily to start ton ight. We will continue the low-dose correction scale using Humalog insulin as given. We will follow and advise accordingly. Janette Castillo MD cc: [id number] TT: 07/25/2016 14:01:06 Confirmation # [id number] Dictation # [id number] namrata
--- NOTE | 2016-07-25 15:18 | CP.PCM.PN ---
Subjective - Date & Time of Evaluation Date of Evaluation: 07/25/16 Time of Evaluation: 14:20 - Subjective Subjective: Pt seen and examined. Requested to have Imitrex because of severe headache not completely responding to Fioricet Objective - Vital Signs/Intake and Output Vital Signs (last 24 hours): Temp Pulse Resp BP Pulse Ox 98 F 74 18 110/68 99 07/25/16 08:25 07/25/16 08:25 07/25/16 08:25 07/25/16 08:25 07/25/16 08:25 - Medications Medications: Current Medications Acetaminophen/Butalbital/Caffeine (Fioricet) 1 tab PO Q4 PRN PRN Reason: Headache Last Admin: 07/25/16 00:08 Dose: 1 tab Albuterol/Ipratropium (Duoneb 3 Mg/0.5 Mg (3 Ml) Ud) 3 ml INH RQ6 PRN PRN Reason: Shortness of Breath Last Admin: 07/22/16 16:45 Dose: 3 ml Albuterol/Ipratropium (Duoneb 3 Mg/0.5 Mg (3 Ml) Ud) 3 ml INH RTID [facility] Last Admin: 07/25/16 14:14 Dose: 3 ml Azithromycin (Zithromax) 500 mg PO DAILY [facility] Last Admin: 07/25/16 08:05 Dose: 500 mg Enoxaparin Sodium (Lovenox) 40 mg SC DAILY [facility] PRN Reason: Protocol Last Admin: 07/25/16 09:44 Dose: 40 mg Glipizide (Glucotrol) 10 mg PO BIDAC [facility] Last Admin: 07/25/16 09:43 Dose: 10 mg Ibuprofen (Motrin Tab) 600 mg PO Q6 PRN PRN Reason: Pain, severe (8-10) Last Admin: 07/24/16 12:09 Dose: 600 mg Insulin Human Lispro (Humalog) 0 units SC ACHS [facility] PRN Reason: Protocol Last Admin: 07/25/16 12:16 Dose: 6 units Insulin Human Lispro (Humalog) 20 units SC AC [facility] Last Admin: 07/25/16 12:14 Dose: 20 units Insulin Human NPH (Humulin N) 40 units SC HS [facility] Metformin HCl (Glucophage) 1,000 mg PO BIDWM [facility] Last Admin: 07/25/16 08:04 Dose: 1,000 mg Montelukast Sodium (Singulair) 10 mg PO HS [facility] Last Admin: 07/24/16 21:58 Dose: 10 mg Nicotine (Nicoderm Cq) 1 patch TD DAILY [facility] Last Admin: 07/25/16 08:05 Dose: 1 patch Pantoprazole Sodium (Protonix Ec Tab) 40 mg PO DAILY [facility] Last Admin: 07/25/16 08:05 Dose: 40 mg Fluticasone/Salmeterol (Advair Diskus 250/50) 1 puff IH Q12 [facility] Last Admin: 07/25/16 08:04 Dose: 1 puff - Labs Labs: 07/25/16 06:15 - Constitutional Appears: No Acute Distress - Head Exam Head Exam: ATRAUMATIC - Eye Exam Eye Exam: absent: Scleral icterus - ENT Exam ENT Exam: Mucous Membranes Moist - Neck Exam Neck Exam: absent: Meningismus - Respiratory Exam Respiratory Exam: absent: Rhonchi, Wheezes, Respiratory Distress - Cardiovascular Exam Cardiovascular Exam: REGULAR RHYTHM, +S1, +S2 - GI/Abdominal Exam GI & Abdominal Exam: Soft. absent: Tenderness - Rectal Exam Rectal Exam: Deferred - Neurological Exam Neurological Exam: Alert, Oriented x3 - Psychiatric Exam Psychiatric exam: Normal Affect - Skin Skin Exam: Dry, Intact Assessment and Plan (1) Exacerbation of asthma Status: Resolved (2) DM2 (diabetes mellitus, type 2) Status: Chronic (3) DVT prophylaxis Status: Acute - Assessment and Plan (Free Text) Assessment: 41 yo male with history of asthma and DM2 was admitted because asthmatic exacerbation. He was managed with inhaled bronchodilators and steroid plus antibiotics and did well however his blood sugar remained very high sometimes above 500mg% probably because of steroid. (1) Asthma exacerbation resolved continue Duonebs, Montelukast and Zithromax (5th day today) DC Zithromax tomorrow (2) DM2 (diabetes mellitus, type 2) BS uncontrolled Glucotrol 10mg PO BID Metformin 1000mg PO BID endocrinology consult with Dr Castillo appreciated Lispro 20 units SC AC TID NPH Insulin 40 units SC HS (3) DVT prophylaxis Lovenox 40mg SC daily
[2016-07-25] MEDS ORDERED: Insulin Lispro (humaLOG) 100 Units/ml Inj SC SCH (16:30)
[2016-07-25] MEDS: Insulin NPH Human 100 Units/ml Inj SC SCH (22:33)
[2016-07-26] MEDS: Insulin Lispro (humaLOG) 100 Units/ml Inj SC SCH ×7 (06:55→22:00)
[2016-07-26] MEDS: Albuterol-Ipratrop 3 mg / 0.5 (3 ml) UD INH SCH ×3 (08:13→20:37)
[2016-07-26] MEDS: Fluticasone-Salmeterol 250-50mcg Diskus IH SCH (08:46)
[2016-07-26] MEDS: Enoxaparin 40 mg Syringe SC SCH (08:47)
[2016-07-26] MEDS: Pantoprazole 40 mg EC Tab PO SCH (08:52)
[2016-07-26] MEDS: Apap-Butalbital-Caffeine 325-50-40mg Tab PO PRN (12:16)
--- NOTE | 2016-07-26 12:50 | CP.PCM.PN ---
Subjective - Date & Time of Evaluation Date of Evaluation: 07/26/16 Time of Evaluation: 12:00 - Subjective Subjective: No fever no SOB no cough no CP Glucose uncontrolled - Insulin dose increased as rec by Dr Castillo no abd pain had headache this am , better now Objective - Vital Signs/Intake and Output Vital Signs (last 24 hours): Temp Pulse Resp BP Pulse Ox 98.3 F 87 17 136/86 99 07/25/16 23:35 07/25/16 23:35 07/25/16 23:35 07/25/16 23:35 07/25/16 23:35 - Medications Medications: Current Medications Acetaminophen/Butalbital/Caffeine (Fioricet) 1 tab PO Q4 PRN PRN Reason: Headache Last Admin: 07/26/16 12:16 Dose: 1 tab Albuterol/Ipratropium (Duoneb 3 Mg/0.5 Mg (3 Ml) Ud) 3 ml INH RQ6 PRN PRN Reason: Shortness of Breath Last Admin: 07/22/16 16:45 Dose: 3 ml Albuterol/Ipratropium (Duoneb 3 Mg/0.5 Mg (3 Ml) Ud) 3 ml INH RTID [facility] Last Admin: 07/26/16 08:13 Dose: 3 ml Azithromycin (Zithromax) 500 mg PO DAILY [facility] Last Admin: 07/26/16 08:47 Dose: 500 mg Enoxaparin Sodium (Lovenox) 40 mg SC DAILY [facility] PRN Reason: Protocol Last Admin: 07/26/16 08:47 Dose: 40 mg Glipizide (Glucotrol) 10 mg PO BIDAC [facility] Last Admin: 07/26/16 08:46 Dose: 10 mg Ibuprofen (Motrin Tab) 600 mg PO Q6 PRN PRN Reason: Pain, severe (8-10) Last Admin: 07/24/16 12:09 Dose: 600 mg Insulin Human Lispro (Humalog) 0 units SC ACHS [facility] PRN Reason: Protocol Last Admin: 07/26/16 12:17 Dose: 4 units Insulin Human Lispro (Humalog) 20 units SC AC [facility] Last Admin: 07/26/16 12:17 Dose: 20 units Insulin Human NPH (Humulin N) 40 units SC HS [facility] Last Admin: 07/25/16 22:33 Dose: 40 u Metformin HCl (Glucophage) 1,000 mg PO BIDWM [facility] Last Admin: 07/26/16 08:46 Dose: 1,000 mg Montelukast Sodium (Singulair) 10 mg PO HS [facility] Last Admin: 07/25/16 21:44 Dose: 10 mg Nicotine (Nicoderm Cq) 1 patch TD DAILY [facility] Last Admin: 07/26/16 08:47 Dose: 1 patch Pantoprazole Sodium (Protonix Ec Tab) 40 mg PO DAILY [facility] Last Admin: 07/26/16 08:52 Dose: 40 mg Fluticasone/Salmeterol (Advair Diskus 250/50) 1 puff IH Q12 [facility] Last Admin: 07/26/16 08:46 Dose: 1 puff - Labs Labs: 07/25/16 06:15 - Constitutional Appears: No Acute Distress - Head Exam Head Exam: ATRAUMATIC, NORMAL INSPECTION, NORMOCEPHALIC - Eye Exam Eye Exam: EOMI, Normal appearance, PERRL Pupil Exam: NORMAL ACCOMODATION - ENT Exam ENT Exam: Mucous Membranes Moist, Normal External Ear Exam - Neck Exam Neck Exam: Full ROM. absent: Meningismus - Respiratory Exam Respiratory Exam: Wheezes (mild wheeze), NORMAL BREATHING PATTERN. absent: Rales, Respiratory Distress - Cardiovascular Exam Cardiovascular Exam: REGULAR RHYTHM, +S1, +S2 - GI/Abdominal Exam GI & Abdominal Exam: Soft, Normal Bowel Sounds. absent: Tenderness - Extremities Exam Extremities Exam: Full ROM, Normal Capillary Refill. absent: Calf Tenderness, Pedal Edema - Back Exam Back Exam: Full ROM. absent: CVA tenderness (L), CVA tenderness (R), paraspinal tenderness, vertebral tenderness - Neurological Exam Neurological Exam: Alert, Awake, CN II-XII Intact, Normal Gait, Oriented x3 Neuro motor strength exam: Left Upper Extremity: 5, Right Upper Extremity: 5, Left Lower Extremity: 5, Right Lower Extremity: 5 - Psychiatric Exam Psychiatric exam: Normal Affect, Normal Mood - Skin Skin Exam: Dry, Normal Color, Warm Assessment and Plan (1) COPD exacerbation Status: Acute (2) DM2 (diabetes mellitus, type 2) Status: Chronic (3) Bronchitis Status: Acute (4) Migraine Status: Chronic (5) DVT prophylaxis Status: Acute - Assessment and Plan (Free Text) Assessment: 41 y/o gent with hx of Smoking, DM type II , came in bec of SOB, wheezing. CXR : no infiltrates. Started on IV Solumedrol and Duonebs tx. Glucose uncontrolled due to steroids. Endocrinology consulted- pt started on Insulin. 1) COPD exacerbation Status: Acute improving very minimal wheeze cont Inhaled steroids- increase Advair dose to 500/50 bid off IV Solumedrol cont RTC Duoneb cont Singulair (2) DM2 (diabetes mellitus, type 2) uncontrolled with Hyperglycemia, insulin requiring Status: Chronic uncontrolled - worsened with steroids Dr Castillo consulted- case discussed - rec start NPH 20 q am and 40 qhs and TID Humalog cont Metformin and Glipizide SW consulted to help pt with meds (3) Bronchitis Status: Acute CXR negative cont Azithro IV (4) Migraine Status: Chronic cont Fioricet (5) DVT prophylaxis Lovenox
[2016-07-26 15:56] VITALS: BP 122/82; PULSE 98; RESP 19; TEMP 98; O2SAT 98
[2016-07-26] MEDS: Fluticasone-Salmeterol 500-50mcg Diskus IH SCH (20:40)
--- NOTE | 2016-07-26 21:46 | PN ---
DATE: 07/26/2016 ROOM: 665 SUBJECTIVE: This is a 41-year-old male with recent uncontrolled type 2 insulin-requiring diabetes, n ow being followed closely for metabolic management. His glycemic levels continue to fluctuate, althruslan parham has occasional bouts of near optimal glycemic values as noted. His glucose levels today have ran ged from 146 to 156 and 320 mg/dL. His chemistries showed a BUN of 23, sodium 136, potassium 4.1, ch loride 100, CO2 29, glucose 268 and creatinine 0.6. So, at this time, we will modify his current bas al and bolus insulin regimen and increase the Humalog to 24 units subQ t.i.d. before meals as ordered . We will also add basal insulin with NPH to be given as 20 units subQ at 10 a.m. and 40 units subQ at bedtime as ordered. We will continue modify the coverage scale to obviate hypoglycemia and detail ed orders have been given. As Humalog is extremely expensive, we will switch him over to premixed ch eaper insulin with Humulin 70/30 given as 40 units before breakfast and 30 units before dinner as ord ered. We will titrate incrementally as indicated to optimize metabolic control. We will follow. Janette Castillo MD cc: [phone] TT: 07/26/2016 21:45:50 Confirmation # [id number] Dictation # [id number]
[2016-07-26] MEDS: Insulin NPH Human 100 Units/ml Inj SC SCH (21:57)
[2016-07-27] MEDS: Albuterol-Ipratrop 3 mg / 0.5 (3 ml) UD INH SCH ×2 (07:50→13:19)
[2016-07-27] MEDS ORDERED: Insulin NPH Human 100 Units/ml Inj SC SCH (09:00)
[2016-07-27] MEDS: Fluticasone-Salmeterol 500-50mcg Diskus IH SCH (09:10)
[2016-07-27] MEDS: Pantoprazole 40 mg EC Tab PO SCH ×2 (09:10→09:38)
[2016-07-27] MEDS: Insulin Lispro (humaLOG) 100 Units/ml Inj SC SCH ×4 (09:10→12:32)
[2016-07-27] MEDS: Enoxaparin 40 mg Syringe SC SCH (09:37)
--- NOTE | 2016-07-27 10:11 | CP.PCM.DIS ---
Provider - Provider Date of Admission: 07/22/16 11:56 Attending physician: Rani Alan MD Time Spent in preparation of Discharge (in minutes): 30 Hospital Course - Lab Results Lab Results: Most Recent Lab Values WBC 9.5 K/uL (4.8-10.8) 07/21/16 00:30 RBC 5.13 Mil/uL (4.40-5.90) 07/21/16 00:30 Hgb 16.7 g/dL (12.0-18.0) 07/21/16 00:30 Hct 49.6 % (35.0-51.0) 07/21/16 00:30 MCV 96.7 fl (80.0-94.0) H 07/21/16 00:30 MCH 32.5 pg (27.0-31.0) H 07/21/16 00:30 MCHC 33.6 g/dL (33.0-37.0) 07/21/16 00:30 RDW 12.6 % (11.5-14.5) 07/21/16 00:30 Plt Count 193 K/uL (130-400) 07/21/16 00:30 MPV 7.7 fl (7.2-11.7) 07/21/16 00:30 Neut % (Auto) 60.8 % (50.0-75.0) 07/21/16 00:30 Lymph % (Auto) 28.8 % (20.0-40.0) 07/21/16 00:30 Phillips % (Auto) 9.4 % (0.0-10.0) 07/21/16 00:30 Eos % (Auto) 0.5 % (0.0-4.0) 07/21/16 00:30 Baso % (Auto) 0.5 % (0.0-2.0) 07/21/16 00:30 Neut # 5.7 K/uL (1.8-7.0) 07/21/16 00:30 Lymph # 2.7 K/uL (1.0-4.3) 07/21/16 00:30 Phillips # 0.9 K/uL (0.0-0.8) H 07/21/16 00:30 Eos # 0.0 K/uL (0.0-0.7) 07/21/16 00:30 Baso # 0.1 K/uL (0.0-0.2) 07/21/16 00:30 Sodium 136 mmol/l (132-148) 07/25/16 06:15 Potassium 4.1 MMOL/L (3.6-5.0) 07/25/16 06:15 Chloride 100 mmol/L (98-107) 07/25/16 06:15 Carbon Dioxide 29 mmol/L (22-30) 07/25/16 06:15 Anion Gap 12 (10-20) 07/25/16 06:15 BUN 23 mg/dl (9-20) H 07/25/16 06:15 Creatinine 0.6 mg/dL (0.8-1.5) L 07/25/16 06:15 Est GFR ( Amer) > 60 07/25/16 06:15 Est GFR (Non-Af Amer) > 60 07/25/16 06:15 POC Glucose (mg/dL) 148 mg/dL (65-110) H 07/26/16 21:40 Random Glucose 268 mg/dL (75-110) H 07/25/16 06:15 Hemoglobin A1c 9.2 % (4.2-6.5) H 07/21/16 06:15 Calcium 8.5 mg/dL (8.4-10.2) 07/25/16 06:15 Total Bilirubin 0.4 mg/dl (0.2-1.3) 07/21/16 00:30 AST 28 U/L (17-59) 07/21/16 00:30 ALT 42 U/L (21-72) 07/21/16 00:30 Alkaline Phosphatase 85 U/L (38-126) 07/21/16 00:30 Total Protein 7.1 G/DL (6.3-8.2) 07/21/16 00:30 Albumin 4.2 g/dL (3.5-5.0) 07/21/16 00:30 Globulin 2.8 gm/dL (2.2-3.9) 07/21/16 00:30 Albumin/Globulin Ratio 1.5 (1.0-2.1) 07/21/16 00:30 - Hospital Course Hospital Course: 41 y/o gent with hx of Smoking, DM type II , came in bec of SOB, wheezing. CXR : no infiltrates. Started on IV Solumedrol and Duonebs tx. Glucose uncontrolled due to steroids. Endocrinology consulted- pt started on Insulin. Today patient refused vitals and to have glucose checked. Patient also complained of knee pain however refused knee XR. Pain meds given. 1) COPD exacerbation Status: Acute RESOLVED cont Inhaled steroids- increase Advair dose to 500/50 bid off IV Solumedrol cont RTC Duoneb cont Singulair (2) DM2 (diabetes mellitus, type 2) uncontrolled with Hyperglycemia, insulin requiring Status: Chronic uncontrolled - worsened with steroids Dr Castillo consulted- case discussed - rec start NPH 20 q am and 40 qhs and TID Humalog cont Metformin and Glipizide SW consulted to help pt with meds sugars now controlled, may be discharged home with follow up at [facility] clinic. (3) Bronchitis Status: Acute CXR negative completed course. (4) Migraine Status: Chronic cont Fioricet (5) DVT prophylaxis Lovenox Discharge Exam - Head Exam Head Exam: ATRAUMATIC, NORMAL INSPECTION, NORMOCEPHALIC - Eye Exam Eye Exam: EOMI, Normal appearance, PERRL - ENT Exam ENT Exam: Mucous Membranes Moist, Normal Oropharynx - Neck Exam Neck exam: Full Rom, Normal Inspection - Respiratory Exam Respiratory Exam: Clear to PA & Lateral, Wheezes, NORMAL BREATHING PATTERN. absent: Rhonchi - Cardiovascular Exam Cardiovascular Exam: RRR, +S1, +S2 - GI/Abdominal Exam GI & Abdominal Exam: Normal Bowel Sounds, Soft. absent: Mass, Tenderness - Extremities Exam Extremities exam: normal capillary refill, pedal pulses present - Back Exam Back exam: absent: CVA tenderness (L), CVA tenderness (R) - Neurological Exam Neurological exam: Alert, Normal Gait, Oriented x3 - Psychiatric Exam Psychiatric exam: Normal Affect, Normal Mood - Skin Skin Exam: Dry, Warm Discharge Plan - Discharge Medications Prescriptions: Fluticasone/Salmeterol 500/50 [Advair Diskus 500/50] 1 puff IH Q12 #1 puff GlipiZIDE [Glucotrol] 10 mg PO BIDAC #60 tab Insulin Human NPH [Humulin N] 20 units SC QAM #1 vial Insulin Human NPH [Humulin N] 40 units SC HS #1 vial MetFORMIN [glucoPHAGE] 1,000 mg PO BIDWM #60 tab Montelukast [Singulair] 10 mg PO HS #30 tab predniSONE [predniSONE Tab] 10 mg PO ASDIR #10 tab - Follow Up Plan Condition: FAIR Disposition: HOME/ ROUTINE Instructions: Asthma (DC), Diabetes Mellitus Type 2 in Adults (DC), COPD ( Chronic Obstructive Pulmonary Disease) (GEN) Additional Instructions: FOLLOW UP WITH [facility] RESUME ALL MEDS DIRECTED RESUME DIABETIC DIET, AVOID ALL SMOKE/TOBACCO. RESUME ACTIVITY TOLERATED RETURN TO ANY ER IF CONDITION WORSENS. Referrals: Janette Castillo MD [Medical Doctor] - [facility] [Provider Group]
== END 2016-07-27 16:00 | disposition home or self-care (01) | DRG 191 ==
LOC: H.ER 23:32 → H.ERHOLD 07-21 00:26 → H.MEDSURG1 07-21 02:13 → OBSVTOIN 07-22 11:56 → H.MEDSURG1 07-22 21:48
PROVIDERS: ADMIT Internal Medicine; ATTEND Internal Medicine
PROC: 3E0F7GC Introduction of Other Therapeutic Substance into Respiratory Tract, Via Natural or Artificial Opening (ICD-10-PCS; principal; 2016-07-21)
DX: J44.1 Chronic obstructive pulmonary disease with (acute) exacerbation (principal); J45.901 Unspecified asthma with (acute) exacerbation; E11.649 Type 2 diabetes mellitus with hypoglycemia without coma; I11.9 Hypertensive heart disease without heart failure; E11.65 Type 2 diabetes mellitus with hyperglycemia; E78.5 Hyperlipidemia, unspecified; F17.210 Nicotine dependence, cigarettes, uncomplicated; G43.909 Migraine, unspecified, not intractable, without status migrainosus; T38.0X5A Adverse effect of glucocorticoids and synthetic analogues, initial encounter; Z79.4 Long term (current) use of insulin; Z79.51 Long term (current) use of inhaled steroids; Z79.84 Long term (current) use of oral hypoglycemic drugs

== ENCOUNTER 2016-07-29 03:32 | Emergency (ER) | payer MEDICAID ==
[2016-07-29 03:32] VITALS: BMI 33.5
[2016-07-29 03:52] VITALS: RESP 18
--- NOTE | 2016-07-29 04:27 | ED PDOC ---
Lower Extremity Pain/Injury Time Seen by Provider: 07/29/16 04:11 Chief Complaint (Nursing): Lower Extremity Problem/Injury Chief Complaint (Provider): Knee pain History Per: Patient Additional Complaint(s): CC: SOB, Wheezing HPI: 41 y/o male with a PMH of Asthma and DM, who presents with complaints of SOB and severe left knee pain. Pt admits to being admitted to the hospital on for SOB and was on steroids and insulin; however, since being discharged he has not taken any of his medications. Patient states he was smoking regularly prior to this 3 week long episode. ROS: 14 systems reviewed, negative other than HPI MHx: Asthma, ?DM2 SHx: None Allergies: NKDA Medications: Per med list Medical Hx: None, reviewed Social Hx: Live with family, no heavy EtOH, smoking < 1ppd until 3 weeks ago Past Medical History Reviewed: Historical Data, Nursing Documentation, Vital Signs Vital Signs: Last Vital Signs Temp 99 F 07/29/16 03:50 Pulse 111 H 07/29/16 03:50 Resp 18 07/29/16 03:50 BP 118/81 07/29/16 03:50 Pulse Ox 98 07/29/16 03:50 - Medical History PMH: Asthma, COPD, Diabetes (type II) Denies: Chronic Kidney Disease - Family History Family History: States: Unknown Family Hx - Living Arrangements Living Arrangements: With Family - Social History Current smoker - smoking cessation education provided: No Ex-Smoker (has not smoked in the last 12 months): Yes Alcohol: Social Drugs: Cannabis - Immunization History Hx Tetanus Toxoid Vaccination: No Hx Influenza Vaccination: No Hx Pneumococcal Vaccination: No - Home Medications Home Medications: Ambulatory Orders Medication Instructions Recorded Acetaminophen/Butalbital/Caf 1 tab PO DAILY 07/21/16 [Fioricet] Budesonide/Formoterol Fumarate 2 puff INH PRN PRN 07/21/16 [Symbicort 160-4.5 Mcg Inhaler] Sumatriptan Succinate [Imitrex] 100 mg PO DAILY 07/21/16 GlipiZIDE [Glucotrol] 10 mg PO BIDAC #60 tab 07/24/16 MetFORMIN [glucoPHAGE] 1,000 mg PO BIDWM #60 tab 07/24/16 Montelukast [Singulair] 10 mg PO HS #30 tab 07/24/16 predniSONE [predniSONE Tab] 10 mg PO ASDIR #10 tab 07/24/16 Fluticasone/Salmeterol 500/50 1 puff IH Q12 #1 puff 07/27/16 [Advair Diskus 500/50] Insulin Human NPH [Humulin N] 20 units SC QAM #1 vial 07/27/16 Insulin Human NPH [Humulin N] 40 units SC HS #1 vial 07/27/16 - Allergies Allergies/Adverse Reactions: Allergies Allergy/AdvReac Type Severity Reaction Status Date / Time No Known Allergies Allergy Verified 07/29/16 03:50 Wells Criteria for PE - Wells Criteria for Pulmonary Embolism Clinical Signs and Symptoms of DVT: No P.E is #1 Diagnosis, or Equally Likely: No Heart Rate >100: Yes Immobilization at least 3 days;Surgery previous 4 weeks: No Previous, objectively diagnosed PE or DVT: No Hemoptysis: No Malignancy w/treatment within 6 months, or palliative: No Total Score: 1.5 Review of Systems ROS Statement: Except As Marked, All Systems Reviewed And Found Negative Respiratory: Positive for: Shortness of Breath Musculoskeletal: Positive for: Leg Pain Physical Exam - Reviewed Nursing Documentation Reviewed: Yes Vital Signs Reviewed: Yes - Physical Exam Appears: Positive for: Well, Non-toxic, No Acute Distress Head Exam: Positive for: ATRAUMATIC, NORMAL INSPECTION, NORMOCEPHALIC Skin: Positive for: Normal Color, Warm, DRY Eye Exam: Positive for: EOMI, Normal appearance, PERRL ENT: Positive for: Normal ENT Inspection Neck: Positive for: Normal, Painless ROM Cardiovascular/Chest: Positive for: Regular Rate, Rhythm Respiratory: Positive for: CNT, Normal Breath Sounds Gastrointestinal/Abdominal: Positive for: Normal Exam, Bowel Sounds, Soft Back: Positive for: Normal Inspection Extremity: Positive for: Normal ROM, Tenderness (over patella bilaterally). Negative for: Deformity, Swelling Neurologic/Psych: Positive for: Alert, Oriented - Laboratory Results Result Diagrams: 07/29/16 05:00 07/29/16 05:00 - ECG O2 Sat by Pulse Oximetry: 98 Medical Decision Making Medical Decision Making: Pt started on duo neb for complaints of SOB IV access established and diagnostics ordered CBC resulted WNL, COMP revealed elevated sugar of 234 Dimer resulted (+) CTA ordered Case endorsed to ED MD, Dr. Acosta, pending diagnostic review and r-eval Disposition - Clinical Impression Clinical Impression: Acute knee pain, Shortness of breath - Patient ED Disposition Is Patient to be Admitted: No - Disposition Disposition: Transfer of Care (Dr. acosta) Disposition Time: 05:56 Condition: STABLE - POA Present On Arrival: Poor Glycemic Control
[2016-07-29] MEDS ORDERED: Sodium Chloride 0.9% 1,000 ML IV STA (04:28)
[2016-07-29 05:07] LABS: BASO # 0.1 K/uL (0.0-0.2); BASO % 0.7 % (0.0-2.0); EOS # 0.1 K/uL (0.0-0.7); EOS % 0.8 % (0.0-4.0); HEMATOCRIT 45.3 % (35.0-51.0); LYMPH # 1.9 K/uL (1.0-4.3); LYMPH % 19.5 % (20.0-40.0); MEAN CELL VOLUME 95.4 fl (80.0-94.0); MEAN CORPUSCULAR HEMOGLOBIN 32.5 pg (27.0-31.0); MEAN CORPUSCULAR HGB CONC 34.1 g/dL (33.0-37.0); MEAN PLATELET VOLUME 7.5 fl (7.2-11.7); MONO # 0.7 K/uL (0.0-0.8); MONO % 7.9 % (0.0-10.0); NEUT # 6.8 K/uL (1.8-7.0); NEUT % 71.1 % (50.0-75.0); NRBC % 0.1 % (0.0-0.0); RED CELL DISTRIBUTION WIDTH 12.6 % (11.5-14.5); WHITE BLOOD COUNT 9.5 K/uL (4.8-10.8)
[2016-07-29 05:21] LABS: ALB/GLOB RATIO 1.4 (1.0-2.1); ALKALINE PHOSPHATASE 76 U/L (38-126); ALT/SGPT 54 U/L (21-72); AST/SGOT 29 U/L (17-59); BILIRUBIN,TOTAL 0.4 mg/dl (0.2-1.3); BLOOD UREA NITROGEN 17 mg/dl (9-20); CALCIUM 8.8 mg/dL (8.4-10.2); CARBON DIOXIDE 25 mmol/L (22-30); CHLORIDE 97 mmol/L (98-107); GFR AFRICAN-AMERICAN > 60; GLUCOSE,RANDOM 234 mg/dL (75-110); POTASSIUM 4.4 MMOL/L (3.6-5.0); SODIUM 134 mmol/l (132-148); TOTAL PROTEIN 6.8 G/DL (6.3-8.2)
[2016-07-29] MEDS ORDERED: Albuterol-Ipratrop 3 mg / 0.5 (3 ml) UD INH STA (05:53)
--- NOTE | 2016-07-29 06:06 | ED PDOC ---
- Laboratory Results Result Diagrams: 07/29/16 05:00 07/29/16 05:00 - ECG O2 Sat by Pulse Oximetry: 98 Medical Decision Making Medical Decision Making: Patient s/o from Archana Chavez PA-C at [address] Patient s/o to Dr. Fernandez at [address] Scribe Attestation: Documented by Reynaldo Meade acting as a scribe for Chauncey Brown MD. Provider Scribe Attestation: All medical record entries made by the Scribe were at my direction and personally dictated by me. I have reviewed the chart and agree that the record accurately reflects my personal performance of the history, physical exam, medical decision making, and the department course for this patient. I have also personally directed, reviewed, and agree with the discharge instructions and disposition. Disposition - Clinical Impression Clinical Impression: Acute knee pain, Shortness of breath, COPD exacerbation - POA Present On Arrival: None - Disposition Referrals: [facility] [Outside] Disposition: Transfer of Care Disposition Time: 07:00 Condition: FAIR Prescriptions: Lidocaine 5% [Lidoderm] 1 ea TD DAILY #10 patch traMADol [Ultram] 50 mg PO Q8 #10 tab Instructions: COPD (Chronic Obstructive Pulmonary Disease) (ED), Knee Pain (ED) Patient Signed Over To: Guanaco Fernandez Handoff Comments: pending CT
[2016-07-29] MEDS ORDERED: Sodium Chloride 0.9% 50 ML IV ONE (06:58)
[2016-07-29] MEDS ORDERED: Iodixanol 320 MG/ML 100 ML BOTTLE IV ONE (06:58)
--- NOTE | 2016-07-29 09:02 | CT ---
PROCEDURE: CT Chest with contrast (Pulmonary Angiogram) HISTORY: SOB, bl leg pain COMPARISON: Plain radiographs performed the same day. TECHNIQUE: Axial computed tomography images were obtained of the chest in the pulmonary arterial phase of enhancement. Coronal and sagittal reformatted images were created and reviewed. Intravenous contrast dose: 85 mL Visipaque Radiation dose: Total exam DLP = 407.73 mGy-cm. This CT exam was performed using one or more of the following dose reduction techniques: Automated exposure control, adjustment of the mA and/or kV according to patient size, and/or use of iterative reconstruction technique. FINDINGS: PULMONARY ARTERIES: There are no filling defects in the pulmonary arteries to suggest acute pulmonary embolism. AORTA: The aorta is normal in caliber. No evidence of aortic dissection. LUNGS: The lungs are well inflated and clear. There is subsegmental atelectasis in the right lower lobe. No mass or focal consolidation. There are no endobronchial lesions. PLEURAL SPACES: No effusion or pneumothorax. HEART: The heart is normal in size. No significant pericardial effusion. LYMPH NODES: No pathologic lymphadenopathy. BONES, CHEST WALL: Within normal limits for the patient's age. No fracture or destructive lesion OTHER FINDINGS: Unremarkable. IMPRESSION: 1. No CTA evidence for acute pulmonary embolism. 2. No aortic aneurysm or aortic dissection. 3. No evidence of consolidation, pleural effusion or pneumothorax.
[2016-07-29] MEDS ORDERED: Albuterol-Ipratrop 3 mg / 0.5 (3 ml) UD IH STA (09:15)
--- NOTE | 2016-07-29 10:16 | ED PDOC ---
- Laboratory Results Result Diagrams: 07/29/16 05:00 07/29/16 05:00 - ECG O2 Sat by Pulse Oximetry: 98 Medical Decision Making Medical Decision Making: Still with slight wheezing but pt wants to go home Disposition - Clinical Impression Clinical Impression: Acute knee pain, Shortness of breath, COPD exacerbation - POA Present On Arrival: None - Disposition Referrals: [facility] [Outside] Disposition: Routine/Home Disposition Time: 10:14 Condition: FAIR Prescriptions: Lidocaine 5% [Lidoderm] 1 ea TD DAILY #10 patch traMADol [Ultram] 50 mg PO Q8 #10 tab Instructions: Knee Pain (ED), COPD (Chronic Obstructive Pulmonary Disease) (ED)
[2016-07-29 10:25] VITALS: BP 129/70; PULSE 84; TEMP 98.1
--- NOTE | 2016-07-29 10:37 | RAD ---
HISTORY: sob COMPARISON: Chest x-ray performed 07/21/16 TECHNIQUE: Chest PA and lateral FINDINGS: Examination limited by habitus. LUNGS: No focal consolidation. Please note that chest x-ray has limited sensitivity for the detection of pulmonary masses. PLEURA: No significant pleural effusion identified. No definite pneumothorax . CARDIOVASCULAR: The cardiomediastinal silhouette appears within normal limits of size. OSSEOUS STRUCTURES: Degenerative changes of the spine. VISUALIZED UPPER ABDOMEN: Unremarkable. OTHER FINDINGS: None. IMPRESSION: No focal consolidation, significant pleural effusion, or definite pneumothorax identified.
--- NOTE | 2016-07-29 13:43 | RAD ---
PROCEDURE: Bilateral knees dated 07/29/2016 HISTORY: Pain. COMPARISON: No prior FINDINGS: Right knee findings: The current study reveals no evidence of acute displaced fracture nor dislocation. The osseous structures intact. Joint spaces preserved. Questionable trace joint effusion. Tiny posterior patellar osteophyte formation. Prominent anterior superior and anterior inferior enthesophyte formation. Left knee findings: No evidence of acute displaced fracture nor dislocation. The osseous structures intact. Joint spaces preserved. Tiny posterior patellar osteophyte formation. Prominent anterior superior and anterior inferior patella enthesophyte formation. Small suprapatellar joint effusion. Impression: No evidence of acute displaced fracture nor dislocation. Mild patellofemoral DJD both knees. Prominent bilateral patella enthesophytes as detailed above. . Suspect small left and trace right-sided effusion.
--- NOTE | 2016-07-30 00:03 | CARD ---
APPROVED REPORT EKG Measurement Heart [id number] <Conclusion> Normal sinus rhythm Normal ECG
[2016-07-30 13:58] VITALS: O2SAT 98
== END 2016-07-29 10:25 | disposition home or self-care (01) ==
LOC: H.ER 03:32
DX: R06.02 Shortness of breath (principal); J45.909 Unspecified asthma, uncomplicated; E11.9 Type 2 diabetes mellitus without complications; Z87.891 Personal history of nicotine dependence
CPT/HCPCS: 71020; 71275; 73562; 80053; 82948; 84484; 85025; 85378; 93005; 99284; J2405; J7040; Q9967

== ENCOUNTER 2016-07-31 02:54 | Emergency (ER) | payer SELFPAY ==
[2016-07-31 02:55] VITALS: BMI 33.5
[2016-07-31 03:08] VITALS: BP 128/65; PULSE 111; TEMP 98.8; O2SAT 100
[2016-07-31] MEDS ORDERED: Albuterol-Ipratrop 3 mg / 0.5 (3 ml) UD INH STA ×3 (03:10→03:12)
[2016-07-31] MEDS ORDERED: Insulin Regular 100 units/ml IV ONE ×2 (03:25→04:27)
[2016-07-31] MEDS ORDERED: Sodium Chloride 0.9% 1,000 ML IV STA (03:25)
--- NOTE | 2016-07-31 03:30 | ED PDOC ---
HPI: SOB/CHF/COPD Time Seen by Provider: 07/31/16 03:05 Chief Complaint (Nursing): Shortness Of Breath Chief Complaint (Provider): SOB, wheezing History Per: Patient History/Exam Limitations: no limitations Onset/Duration Of Symptoms: Hrs (24) Current Symptoms Are (Timing): Still Present Additional Complaint(s): 41yo male w PMHx including asthma, COPD, diabetes presents to the ED with c/o SOB and wheezing x 24 hours. Patient was recently hospitalized and discharged for same symptoms. Reports he has been unable to afford medications at home therefore he has been non-compliant with medications including albuterol and insulin. Denies any other medical complaints. Past Medical History Reviewed: Historical Data, Nursing Documentation, Vital Signs Vital Signs: Last Vital Signs Temp 98.8 F 07/31/16 03:04 Pulse 111 H 07/31/16 03:04 Resp 20 07/31/16 03:12 BP 128/65 07/31/16 03:04 Pulse Ox 100 07/31/16 04:41 - Medical History PMH: Asthma, COPD, Diabetes (type II) Denies: Chronic Kidney Disease - Surgical History Surgical History: No Surg Hx - Family History Family History: States: No Known Family Hx - Social History Current smoker - smoking cessation education provided: No Ex-Smoker (has not smoked in the last 12 months): Yes Alcohol: None Drugs: Denies - Immunization History Hx Tetanus Toxoid Vaccination: No Hx Influenza Vaccination: No Hx Pneumococcal Vaccination: No - Home Medications Home Medications: Ambulatory Orders Medication Instructions Recorded Acetaminophen/Butalbital/Caf 1 tab PO DAILY 07/21/16 [Fioricet] Budesonide/Formoterol Fumarate 2 puff INH PRN PRN 07/21/16 [Symbicort 160-4.5 Mcg Inhaler] Sumatriptan Succinate [Imitrex] 100 mg PO DAILY 07/21/16 GlipiZIDE [Glucotrol] 10 mg PO BIDAC #60 tab 07/24/16 MetFORMIN [glucoPHAGE] 1,000 mg PO BIDWM #60 tab 07/24/16 Montelukast [Singulair] 10 mg PO HS #30 tab 07/24/16 predniSONE [predniSONE Tab] 10 mg PO ASDIR #10 tab 07/24/16 Fluticasone/Salmeterol 500/50 1 puff IH Q12 #1 puff 06/17/17 [Advair Diskus 500/50] Insulin Human NPH [Humulin N] 20 units SC QAM #1 vial 07/27/16 Insulin Human NPH [Humulin N] 40 units SC HS #1 vial 07/27/16 Lidocaine 5% [Lidoderm] 1 ea TD DAILY #10 patch 07/29/16 traMADol [Ultram] 50 mg PO Q8 #10 tab 07/29/16 - Allergies Allergies/Adverse Reactions: Allergies Allergy/AdvReac Type Severity Reaction Status Date / Time No Known Allergies Allergy Verified 07/29/16 03:50 Review of Systems ROS Statement: Except As Marked, All Systems Reviewed And Found Negative Respiratory: Positive for: Shortness of Breath, Wheezing Physical Exam - Reviewed Nursing Documentation Reviewed: Yes Vital Signs Reviewed: Yes - Physical Exam Appears: Positive for: Well, In Acute Distress (mild respiratory ) Head Exam: Positive for: ATRAUMATIC, NORMAL INSPECTION, NORMOCEPHALIC Skin: Positive for: Normal Color, Warm, Dry Eye Exam: Positive for: Normal appearance, EOMI, PERRL ENT: Positive for: Normal ENT Inspection Neck: Positive for: Normal, Painless ROM, Supple Cardiovascular/Chest: Positive for: Regular Rate, Rhythm. Negative for: Murmur , Tachycardia Respiratory: Positive for: Wheezing (b/l expiratory wheezing ), Respiratory Distress (mild ) Gastrointestinal/Abdominal: Positive for: Normal Exam, Soft. Negative for: Tenderness Back: Positive for: Normal Inspection. Negative for: L CVA Tenderness, R CVA Tenderness Extremity: Positive for: Normal ROM. Negative for: Deformity, Swelling Neurologic/Psych: Positive for: Alert, Oriented - Laboratory Results Result Diagrams: 07/31/16 03:29 07/31/16 03:29 - ECG O2 Sat by Pulse Oximetry: 100 Pulse Ox Interpretation: Normal Medical Decision Making Medical Decision Makin: Impression: 41yo male w wheezing, SOB in setting of known asthma and COPD Plan: Labs duoneb 3ml INH x3, insulin 8 units IV, solu-medrol 125mg IVP, IVF reassess 0439: Patient reports improvement after tx in the ED. Patient stable for d/c. Provider reinforced need for patient to fill his prescriptions. Dx: COPD Improved Scribe Attestation: Documented by Reynaldo Meade acting as a scribe for Colin Mistry MD. Provider Scribe Attestation: All medical record entries made by the Scribe were at my direction and personally dictated by me. I have reviewed the chart and agree that the record accurately reflects my personal performance of the history, physical exam, medical decision making, and the department course for this patient. I have also personally directed, reviewed, and agree with the discharge instructions and disposition. Disposition - Clinical Impression Clinical Impression: COPD (chronic obstructive pulmonary disease) - Patient ED Disposition Is Patient to be Admitted: No - Disposition Disposition: Routine/Home Disposition Time: 04:39 Condition: IMPROVED Instructions: COPD (Chronic Obstructive Pulmonary Disease) (ED)
[2016-07-31 03:33] LABS: BASO % 0.4 % (0.0-2.0); EOS # 0.1 K/uL (0.0-0.7); HEMATOCRIT 39.8 % (35.0-51.0); LYMPH # 2.4 K/uL (1.0-4.3); LYMPH % 36.7 % (20.0-40.0); MEAN CELL VOLUME 95.8 fl (80.0-94.0); MEAN CORPUSCULAR HEMOGLOBIN 32.7 pg (27.0-31.0); MEAN CORPUSCULAR HGB CONC 34.1 g/dL (33.0-37.0); MEAN PLATELET VOLUME 7.3 fl (7.2-11.7); MONO # 0.8 K/uL (0.0-0.8); MONO % 12.8 % (0.0-10.0); NEUT # 3.1 K/uL (1.8-7.0); NEUT % 48.1 % (50.0-75.0); NRBC % 0.1 % (0.0-0.0); RED CELL DISTRIBUTION WIDTH 12.8 % (11.5-14.5); WHITE BLOOD COUNT 6.4 K/uL (4.8-10.8)
[2016-07-31 03:38] LABS: ALB/GLOB RATIO 1.5 (1.0-2.1); ALKALINE PHOSPHATASE 81 U/L (38-126); ALT/SGPT 46 U/L (21-72); AST/SGOT 20 U/L (17-59); BILIRUBIN,TOTAL 0.6 mg/dl (0.2-1.3); BLOOD UREA NITROGEN 9 mg/dl (9-20); CALCIUM 8.6 mg/dL (8.4-10.2); CARBON DIOXIDE 27 mmol/L (22-30); CHLORIDE 102 mmol/L (98-107); GFR AFRICAN-AMERICAN > 60; GLUCOSE,RANDOM 379 mg/dL (75-110); POTASSIUM 3.9 MMOL/L (3.6-5.0); SODIUM 139 mmol/l (132-148); TOTAL PROTEIN 6.2 G/DL (6.3-8.2)
[2016-07-31 04:06] VITALS: RESP 20
== END 2016-07-31 06:10 | disposition home or self-care (01) ==
LOC: H.ER 02:54
DX: J44.9 Chronic obstructive pulmonary disease, unspecified (principal); E11.9 Type 2 diabetes mellitus without complications; Z79.4 Long term (current) use of insulin; Z91.14 Patient's other noncompliance with medication regimen; Z87.891 Personal history of nicotine dependence
CPT/HCPCS: 80053; 82948; 85025; 94150; 94640; 96374; 99285; J2930; J7040

== ENCOUNTER 2016-08-10 03:25 | Emergency (ER) | payer SELFPAY ==
[2016-08-10 03:26] VITALS: BMI 33.5
[2016-08-10 03:54] VITALS: BP 149/80; PULSE 105; RESP 20; TEMP 97.5; O2SAT 99
[2016-08-10] MEDS ORDERED: Albuterol-Ipratrop 3 mg / 0.5 (3 ml) UD INH STA ×2 (04:28→04:29)
[2016-08-10] MEDS ORDERED: Albuterol-Ipratrop 3 mg / 0.5 (3 ml) UD ONE (04:53)
[2016-08-10 04:55] LABS: BASO # 0.1 K/uL (0.0-0.2); BASO % 1.1 % (0.0-2.0); EOS % 0.3 % (0.0-4.0); LYMPH # 3.9 K/uL (1.0-4.3); LYMPH % 32.6 % (20.0-40.0); MEAN CELL VOLUME 95.3 fl (80.0-94.0); MEAN CORPUSCULAR HEMOGLOBIN 32.1 pg (27.0-31.0); MEAN CORPUSCULAR HGB CONC 33.6 g/dL (33.0-37.0); MEAN PLATELET VOLUME 7.8 fl (7.2-11.7); MONO # 1.3 K/uL (0.0-0.8); MONO % 10.8 % (0.0-10.0); NEUT # 6.6 K/uL (1.8-7.0); NEUT % 55.2 % (50.0-75.0); NRBC % 0.1 % (0.0-0.0); RBC 5.1 Mil/uL (4.40-5.90)
[2016-08-10 04:57] LABS: HEMOGLOBIN 16.3 g/dL (12.0-18.0); WHITE BLOOD COUNT 11.9 K/uL (4.8-10.8)
--- NOTE | 2016-08-10 05:00 | ED PDOC ---
Hyperglycemia/Hypoglycemia Time Seen by Provider: 08/10/16 03:42 Chief Complaint (Nursing): High Blood Sugar Chief Complaint (Provider): dizziness History Per: Patient History/Exam Limitations: no limitations Onset/Duration Of Symptoms: Mins (prior to arrival) Current Symptoms Are (Timing): Still Present : The patient does not have any of the infectious symptoms listed except for those marked. Additional Complaint(s): Delfino Saavedra is a 41 year old male with previous medical history of COPD and diabetes, who presents to the emergency department with a complaint of dizziness associated with body tingling sensation (patient states it is due to prolonged use of steroids) ongoing upon his discharge from [facility] this morning, 08/09/16. He was discharged with insulin and supplies per hospital discharge papers. Denies any further medical complaints. Of note, patient is homeless and has been admitted to several hospitals in the past multiple times due to COPD with exacerbation in which patient has been noncompliant with treatment. Stated that he is a current smoker and has smoked earlier today. PMD: none provided Past Medical History Reviewed: Historical Data, Nursing Documentation, Vital Signs Vital Signs: Last Vital Signs Temp 97.5 F L 08/10/16 03:45 Pulse 105 H 08/10/16 03:45 Resp 20 08/10/16 03:45 BP 149/80 08/10/16 03:45 Pulse Ox 99 08/10/16 03:45 - Medical History PMH: Asthma, COPD, Diabetes (type II), HTN, Migraine Denies: Chronic Kidney Disease - Family History Family History: States: Unknown Family Hx - Social History Current smoker - smoking cessation education provided: Yes - Immunization History Hx Tetanus Toxoid Vaccination: No Hx Influenza Vaccination: No Hx Pneumococcal Vaccination: No - Home Medications Home Medications: Ambulatory Orders Medication Instructions Recorded traMADol [Ultram] 50 mg PO Q8 #10 tab 07/29/16 Fluticasone Propionate [Flovent 110 mcg IH BID #1 blst.w.dev 08/09/16 Diskus] GlipiZIDE [Glucotrol] 10 mg PO BIDAC #60 tab 08/09/16 Insulin Aspart, Recombinant 25 unit SC AC #1 vial 08/09/16 [Novolog] Insulin Glargine, Recombina 40 unit SC HS #1 vial 08/09/16 [Lantus] Lancets/Blood Glucose Strips [Fora 1 each [facility] #120 combo..pkg 08/09/16 [id number] Strp-Lnct] Lisinopril 2.5 mg PO BID #60 tablet 08/09/16 MetFORMIN [glucoPHAGE] 1,000 mg PO BIDWM #60 tab 08/09/16 Topiramate [Topamax] 25 mg PO BID #60 tab 08/09/16 predniSONE [predniSONE Tab] 5 mg PO DAILY #5 tab 08/09/16 Albuterol HFA [Ventolin HFA 90 2 puff IH [id number] #1 puff 08/10/16 mcg/actuation (8 g)] - Allergies Allergies/Adverse Reactions: Allergies Allergy/AdvReac Type Severity Reaction Status Date / Time No Known Allergies Allergy Verified 07/29/16 03:50 Review of Systems ROS Statement: Except As Marked, All Systems Reviewed And Found Negative Neurological: Positive for: Dizziness (associated with body tingling sensation) Physical Exam - Reviewed Nursing Documentation Reviewed: Yes Vital Signs Reviewed: Yes - Physical Exam Appears: Positive for: Well, Non-toxic, No Acute Distress Head Exam: Positive for: ATRAUMATIC, NORMAL INSPECTION, NORMOCEPHALIC Skin: Positive for: Normal Color, Warm, Dry Eye Exam: Positive for: EOMI, Normal appearance, PERRL ENT: Positive for: Normal ENT Inspection Neck: Positive for: Normal, Painless ROM, Supple Cardiovascular/Chest: Positive for: Regular Rate, Rhythm Respiratory: Positive for: Wheezing (expiratory) Gastrointestinal/Abdominal: Positive for: Normal Exam, Bowel Sounds, Soft. Negative for: Tenderness Back: Positive for: Normal Inspection. Negative for: L CVA Tenderness, R CVA Tenderness Extremity: Positive for: Normal ROM. Negative for: Pedal Edema Neurologic/Psych: Positive for: Alert, Oriented - Laboratory Results Result Diagrams: 08/10/16 04:45 08/10/16 04:45 - ECG O2 Sat by Pulse Oximetry: 99 (RA) Pulse Ox Interpretation: Normal Medical Decision Making Medical Decision Making: Initial Impression: Mild COPD; Homelessness Initial Plan: * Labs * Peak flow pre/post TX * Duoneb 3ml INH 500: Pt. improved, will d/c home. Return precautions given. Scribe Attestation: Documented by Janette Hanson, acting as a scribe for Jose A Talbert MD. Provider Scribe Attestation: All medical record entries made by the Scribe were at my direction and personally dictated by me. I have reviewed the chart and agree that the record accurately reflects my personal performance of the history, physical exam, medical decision making, and the department course for this patient. I have also personally directed, reviewed, and agree with the discharge instructions and disposition. Disposition - Clinical Impression Clinical Impression: COPD (chronic obstructive pulmonary disease) - Disposition Referrals: [facility] [Outside] Disposition: Routine/Home Disposition Time: 05:00 Condition: STABLE Prescriptions: Albuterol HFA [Ventolin HFA 90 mcg/actuation (8 g)] 2 puff IH [id number] #1 puff Instructions: COPD (Chronic Obstructive Pulmonary Disease) (ED)
[2016-08-10 05:05] LABS: BLOOD UREA NITROGEN 27 mg/dl (9-20); CALCIUM 8.8 mg/dL (8.4-10.2); GFR AFRICAN-AMERICAN > 60; GFR NON-AFRICAN AMERICAN > 60
== END 2016-08-10 06:24 | disposition home or self-care (01) ==
LOC: H.ER 03:25
DX: J44.9 Chronic obstructive pulmonary disease, unspecified (principal); E11.9 Type 2 diabetes mellitus without complications; I10 Essential (primary) hypertension; Z59.0 Homelessness; Z79.4 Long term (current) use of insulin